=== PATIENT | male | born 1975 ===

== ENCOUNTER 2018-03-17 16:35 | Emergency (ER) | payer SELFPAY ==
[2018-03-17 16:57] VITALS: TEMP 99.2
--- NOTE | 2018-03-17 18:46 | C.PDOC ---
History Of Present Illness 42 year old male presents to the ED for evaluation of occasional polyurea and dyspnea. States he may have diabetes and has had recent significant weight loss. Denies fever, nausea, vomiting, and any other associated symptoms. Time Seen by Provider: 03/17/18 18:33 Chief Complaint (Nursing): High Blood Sugar History Per: Patient History/Exam Limitations: no limitations Current Symptoms Are (Timing): Still Present Past Medical History Reviewed: Historical Data, Nursing Documentation, Vital Signs Vital Signs: Last Vital Signs Temp 99.2 F 03/17/18 16:55 Pulse 102 H 03/17/18 16:55 Resp 16 03/17/18 16:55 BP 138/78 03/17/18 16:55 Pulse Ox 97 03/17/18 16:55 Surgical History: Appendectomy, Cholecystectomy Family History: States: Unknown Family Hx - Social History Hx Alcohol Use: Yes Hx Substance Use: (last use 9 days ago) - Immunization History Hx Tetanus Toxoid Vaccination: Yes Hx Influenza Vaccination: No Hx Pneumococcal Vaccination: No Review Of Systems Except As Marked, All Systems Reviewed And Found Negative. Constitutional: Negative for: Fever, Chills Respiratory: Positive for: Other (dyspnea) Gastrointestinal: Negative for: Nausea, Vomiting Genitourinary: Positive for: Other (polyuria) Physical Exam - Physical Exam Appears: Non-toxic Skin: Normal Color, Warm, Dry Head: Atraumatic, Normacephalic Eye(s): bilateral: PERRL Oral Mucosa: Moist Neck: Normal ROM, Trachea Midline, Supple Chest: Symmetrical, No Deformity Respiratory: Other (no acute distress.) Gastrointestinal/Abdominal: Normal Exam, Soft Extremity: Normal ROM (x4), No Deformity Neurological/Psych: Oriented x3, Normal Speech, Normal Motor Gait: Steady ED Course And Treatment - Laboratory Results Lab Interpretation: Abnormal (FS 247 H) O2 Sat by Pulse Oximetry: 97 (RA) Pulse Ox Interpretation: Normal Medical Decision Making Medical Decision Making: central obesity, FS 247 start Metformin 1000 bid opt f/u Sleep apnea x 8 yrs no prior tx refer for sleep study Progress/Update: Patient stable for discharge. Prescribed Lancets, Blood-Glucose Control, and Metformin. Disposition Doctor Will See Patient In The: Office Counseled Patient/Family Regarding: Studies Performed, Diagnosis - Disposition Referrals: [facility] [Outside] [facility] [Outside] [facility] [Outside] [facility] [Outside] Simnoe Polo MD [Staff Provider] - Disposition: HOME/ ROUTINE Disposition Time: 18:45 Condition: GOOD Additional Instructions: Diabetes: metformin 1000 mg twice a day with meals check FS's prior to breakfast and dinner to monitor bring results to next Clinic visit Sleep Apnea Call and make appt for Sleep Study w Dr. Polo (Sleep Sleep Lab Technician) Prescriptions: Blood-Glucose Control, Normal [Meter-Check] 1 each MC BID #1 each Lancets/Blood Glucose Strips [Fora [id number] Strp-Lnct] 1 each MC BID #60 combo..pkg MetFORMIN [glucoPHAGE] 1,000 mg PO BID #60 tab Instructions: Sleep Apnea, Hyperglycemia, Adult, Diabetes and Diet Forms: [employer] (Yakut) - Clinical Impression Clinical Impression: Hyperglycemia, Sleep apnea - Scribe Statement The provider has reviewed the documentation as recorded by the Scribe (Sue Trinh) Provider Attestation: All medical record entries made by the Scribe were at my direction and personally dictated by me. I have reviewed the chart and agree that the record accurately reflects my personal performance of the history, physical exam, medical decision making, and the department course for this patient. I have also personally directed, reviewed, and agree with the discharge instructions and disposition.
[2018-03-17 18:59] VITALS: BP 132/70; PULSE 89; RESP 18
[2018-03-17 22:11] VITALS: O2SAT 97
== END 2018-03-17 18:59 | disposition home or self-care (01) ==
LOC: C.ER 16:35
DX: R73.9 Hyperglycemia, unspecified (principal); G47.30 Sleep apnea, unspecified